=== PATIENT | male | born 1995 | race Caucasian/White ===

== ENCOUNTER 2020-05-07 14:51 | Emergency (ER) | payer SELFPAY ==
[~2020-05-07] VITALS: Ht 180.3 cm; Wt 68.2 kg
[2020-05-07 14:56] VITALS: TEMP 98
[2020-05-07] MEDS ORDERED: ZOFRAN 4MG T4 MG/TAB PO (15:19)
[2020-05-07 15:34] VITALS: BP 118/76; PULSE 75
== END 2020-05-07 15:30 | disposition home or self-care (01) ==
LOC: COL.ER 14:51
DX: B34.9 Viral infection, unspecified (principal); Z20.828 Contact with and (suspected) exposure to other viral communicable diseases